=== PATIENT | female | born 1960 | race Caucasian/White ===

== ENCOUNTER → 2017-09-03 | Outpatient (CLI) | payer OTHER | LOC: FIMAGING 15:23 | PROVIDERS: ATTEND Physician Assistant Medical | DX: Z12.31 Encounter for screening mammogram for malignant neoplasm of breast (principal) | CPT/HCPCS: G0202 ==

== ENCOUNTER 2017-12-16 09:04 | Day surgery (SDC) | payer OTHER ==
[2017-12-16] MEDS ORDERED: LR 1,000 ML IV ONE (09:24)
[2017-12-16] MEDS ORDERED: LIDOCAINE 1% 2 ML INJ ID PRN (09:24)
[2017-12-16] MEDS ORDERED: PROPOFOL/EMULSION 500 MG/50 ML BOTTLE IV ONE (10:21)
--- NOTE | 2017-12-16 10:23 | PDGENHP ---
History & Physical Chief Complaint: colon polyps History of Present Illness: 57 year old female presents for surveillance of multiple large polyps Pertinent Past, Social, Family History: pMHx: anxiety. fMhx; half sister CRC. SoHx: no alcohol or cigs. 1 child Relevant Physical Exam: HEENT: anicteric. Cv: RRR +s1s2. Lungs: CTAB. Abd: soft, nt, +bs Cardiorespiratory Assessment: asa 2
[2017-12-16] MEDS ORDERED: NALOXONE HCL 0.4 MG/ML INJ IVP PRN (10:24)
--- NOTE | 2017-12-16 10:24 | PDANEPAE ---
ANE Past Medical History - Cardiovascular History Hx Hypertension: No Hx Arrhythmias: No Hx Chest Pain: No Hx Coronary Artery / Peripheral Vascular Disease: No Hx CHF / Valvular Disease: No Hx Palpitations: No - Pulmonary History Hx COPD: No Hx Asthma/Reactive Airway Disease: No Hx Recent Upper Respiratory Infection: No Hx Oxygen in Use at Home: No Hx Sleep Apnea: No Sleep Apnea Screening Result - Last Documented: Negative - Neurologic History Hx Cerebrovascular Accident: No Hx Seizures: No Hx Dementia: No - Endocrine History Hx Diabetes: No - Renal History Hx Renal Disorders: No - Liver History Hx Hepatic Disorders: No - Neurological & Psychiatric Hx Hx Neurological and Psychiatric Disorders: Yes Neurological / Psychiatric History Comment: ANXIETY - Cancer History Hx Cancer: No - Congenital Disorder History Hx Congenital Disorders: No - GI History Hx Gastrointestinal Disorders: No - Chronic Pain History Chronic Pain: No - Surgical History Prior Surgeries: COLONOSCOPY. INVERTED BREAST NIPPLES. REMVL OVARIAN CYST ANE Review of Systems Review of Systems: - Exercise capacity METS (RN): 5 METS ANE Patient History - Allergies Allergies/Adverse Reactions: acetaminophen Allergy (Verified 12/12/17 14:29) STOMACH ACHE erythromycin base Allergy (Verified 12/12/17 14:29) STOMACH ACHE midazolam [From Versed] Allergy (Verified 12/12/17 14:28) POST MEMORY ISSUES FOR DAYS - Home Medications Home Medications: Cymbalta DAILY06 12/12/17 [Last Taken 12/12/17] Herbals/Supplements -Info Only DAILY 12/12/17 [Last Taken 12/11/17] Ibuprofen PRN 12/12/17 [Last Taken 12/11/17] L Methyl Folate DAILY 12/12/17 [Last Taken 12/11/17] Wellbutrin Xl HS 12/12/17 [Last Taken 12/15/17] ZYRTEC HS 12/12/17 [Last Taken 12/11/17] - NPO status NPO Since - Liquids (Date): 12/16/17 NPO Since - Liquids (Time): 07:00 NPO Since - Solids (Date): 12/15/17 NPO Since - Solids (Time): 08:00 - Smoking Hx Smoking Status: Never smoked - Family Anes Hx Family Hx Anesthesia Complications: MOM SLOW TO WAKE UP ANE Labs/Vital Signs - Vital Signs Blood Pressure: 126/78 Heart Rate: 88 Respiratory Rate: 18 O2 Sat (%): 96 Height: 177.17 cm Weight: 73.482 kg ANE Physical Exam - Airway Neck exam: FROM Mallampati Score: Class 1 Mouth exam: normal dental/mouth exam - Pulmonary Pulmonary: no respiratory distress, no rales or rhonchi - Cardiovascular Cardiovascular: regular rate and rhythym, no murmur, rub, or gallop - ASA Status ASA Status: II ANE Anesthesia Plan Anesthesia Plan: GA with mask
[2017-12-16] MEDS ORDERED: LIDOCAINE 2% 5 ML SDV ONE (10:40)
--- NOTE | 2017-12-16 11:08 | POSTANESTH ---
Post Anesthetic Evaluation Cardiovascular Status: Normal, Stable Respiratory Status: Normal, Stable Level of Consciousness/Mental Status: Mildly Sleepy, Arousable Pain Control: Adequate, Prn Tx Ordered Nausea/Vomiting Control: Adequate, Prn Tx Ordered Complications Possibly Related to Anesthesia: None Noted
[2017-12-16 11:24] VITALS: TEMP 97.2
[2017-12-16 11:45] VITALS: PULSE 73
--- NOTE | 2017-12-16 11:49 | GIREPORT ---
[facility] Surgical Services - Endoscopy Department Patient Name: Nadja Mantilla Procedure Date: 12/16/2017 10:07 AM Patient Type: Outpatient Attending MD/ ER Physician: Kaden Lucas MD Procedure: Colonoscopy Indications: High risk colon cancer surveillance: Personal history of colonic polyps Patient Profile: 57 year old female with a history of a complex hepatic flexure polyp an d transverse colon polyp presents for surveillance colonoscopy. Providers: Kadne Lucas MD Medicines: Monitored Anesthesia Care Complications: No immediate complications. Estimated blood loss: Minimal. Description of Procedure: After obtaining informed consent, the scope was passed under direct vis ion. Throughout the procedure, the patient's blood pressure, pulse, and oxyg en saturations were monitored continuously. The Colonoscope with irrigatio n channel was introduced through the anus and advanced to the cecum, identified by appendiceal orifice and ileocecal valve. The colonoscopy was performed without difficulty. The patient tolerated the procedure well. The quality of the bowel preparation was good. The ileocecal valve, appendi ceal orifice, and rectum were photographed. Findings: The perianal and digital rectal examinations were normal. Pertinent negatives include no palpable rectal lesions. A 7 mm polyp was found in the hepatic flexure. The polyp was sessile. T he polyp was removed with a hot snare. Resection and retrieval were comple te. A 3 mm polyp versus nodular mucosa was found in the transverse colon at a site of previous tattooing. The polyp was sessile. The polyp was remove d with a cold biopsy forceps. Resection and retrieval were complete. Estimated Blood Loss: Estimated blood loss was minimal. Post Op Diagnosis: - One 7 mm polyp at the hepatic flexure, removed with a hot snare. Rese cted and retrieved. - One 3 mm polyp in the transverse colon, removed with a cold biopsy forceps. Resected and retrieved. Recommendation: - Discharge patient to home (with escort). - Resume previous diet. - Continue present medications. - Repeat colonoscopy in 2 years for surveillance. - Await pathology results. - Thank you for allowing me to participate in the care of your patient. Attending Participation: I personally performed the entire procedure. Kaden Lucas MD Kaden Lucas MD 12/16/2017 11:48:11 AM This report has been signed electronicallyKaden Lucas MD Number of Addenda: 0 Note Initiated On: 12/16/2017 10:07 AM Total Procedure Duration Time 0 hours 28 minutes 35 seconds [email or web address]
[2017-12-16 12:08] VITALS: BP 113/76; RESP 12; O2SAT 99
== END 2017-12-16 12:18 | disposition home or self-care (01) ==
LOC: FSGY 09:04
PROVIDERS: ATTEND Internal Medicine Gastroenterology
PROC: 0DBL8ZX Excision of Transverse Colon, Via Natural or Artificial Opening Endoscopic, Diagnostic (ICD-10-PCS; principal; 2017-12-16 10:15)
DX: Z12.11 Encounter for screening for malignant neoplasm of colon (principal); D12.3 Benign neoplasm of transverse colon; K63.5 Polyp of colon; F41.9 Anxiety disorder, unspecified; Z86.010 Personal history of colon polyps
CPT/HCPCS: J2704

== ENCOUNTER → 2018-09-15 | Outpatient (CLI) | payer OTHER | LOC: FIMAGING 14:44 | PROVIDERS: ATTEND Family Medicine | DX: Z12.31 Encounter for screening mammogram for malignant neoplasm of breast (principal) ==